=== PATIENT | female | born 1935 | race Caucasian/White ===

== ENCOUNTER 2019-03-01 10:09 | Emergency (ER) | payer MEDICARE, BC ==
[2019-03-01] MEDS ORDERED: MECLIZINE 12.5 MG TAB PO STA (10:41)
[2019-03-01] MEDS ORDERED: HYDROmorphone 1 MG/ML 1 ML SYRINGE IVP STA (10:43)
[2019-03-01] MEDS ORDERED: HYDROmorphone 0.5 MG/0.5 ML SYRINGE IVP STA (10:44)
--- NOTE | 2019-03-01 10:46 | ED ---
General Adult HPI - General Chief complaint: Fall Stated complaint: Fall- back pain Time Seen by Provider: 03/01/19 10:11 Source: patient, family, EMS, RN notes reviewed Mode of arrival: EMS Limitations: no limitations - History of Present Illness Initial comments: Patient is a pleasant 84-year-old female presenting to the emergency department following a fall with complaints of thoracic back pain. Patient does have chronic lower back pain. Patient states this is a little bit higher than her chronic pain. Patient states this morning she was in the kitchen and turned quickly and fell down. Patient states this was because she got dizzy. Patient does have chronic dizziness that has been present for years. Patient has seen her doctor for this however does not believe she's had a head CT. Patient is on blood thinners for atrial fibrillation history. Patient did lightly strike her head. No loss of consciousness. No confusion or weakness. No speech problems. No other area of injury except for her back. No chest pain or dyspnea. - Related Data Home Medications Medication Instructions Recorded Confirmed Calcium Carbonate [Calcium] 600 mg PO BID 08/10/15 03/01/19 Furosemide [Lasix] 20 mg PO DAILY@1600 08/10/15 03/01/19 Furosemide [Lasix] 40 mg PO QAM 08/10/15 03/01/19 Ny's Leg Cramps 1 tab PO DAILY PRN 08/10/15 03/01/19 Levothyroxine Sodium [Synthroid] 50 mcg PO DAILY 08/10/15 03/01/19 Losartan Potassium [Cozaar] 100 mg PO DAILY 08/10/15 03/01/19 Pravastatin Sodium [Pravachol] 40 mg PO DAILY 08/10/15 03/01/19 Acetaminophen [Tylenol Arthritis] 1,300 mg PO BID 03/01/19 03/01/19 Apixaban [Eliquis] 5 mg PO BID 03/01/19 03/01/19 Magnesium Oxide [Sullivan] 500 mg PO BID 03/01/19 03/01/19 Metoprolol Tartrate [Lopressor] 25 mg PO BID 03/01/19 03/01/19 Propylene Glycol/Peg 400/Pf 1 drop BOTH EYES Q4H PRN 03/01/19 03/01/19 [Systane 0.3-0.4% Eye Drops] Vit C/E/Zn/Coppr/Lutein/Zeaxan 1 cap PO BID 03/01/19 03/01/19 [Preservision Areds 2 Softgel] hydrALAZINE HCL [Apresoline] 50 mg PO BID 03/01/19 03/01/19 Previous Rx's Medication Instructions Recorded Meclizine [Antivert] 25 mg PO TID PRN #12 tab 03/01/19 traMADol HCl [Ultram] 50 mg PO Q6H PRN #12 tab 03/01/19 Allergies Allergy/AdvReac Type Severity Reaction Status Date / Time morphine Allergy Nausea & Verified 03/01/19 10:46 Vomiting Review of Systems ROS Statement: Those systems with pertinent positive or pertinent negative responses have been documented in the HPI. ROS Other: All systems not noted in ROS Statement are negative. Constitutional: Denies: fever Eyes: Denies: eye pain ENT: Denies: ear pain Respiratory: Denies: cough, dyspnea Cardiovascular: Denies: chest pain Endocrine: Denies: fatigue Gastrointestinal: Denies: abdominal pain Genitourinary: Denies: dysuria Musculoskeletal: Reports: as per HPI Skin: Denies: rash Neurological: Reports: vertigo. Denies: headache, weakness, confusion Past Medical History Past Medical History: Cancer, Hyperlipidemia, Osteoarthritis (OA), Thyroid Disorder Additional Past Medical History / Comment(s): See Dr Koo H&P, diet control diabetic, hx skin cancer History of Any Multi-Drug Resistant Organisms: None Reported Past Surgical History: Cholecystectomy, Hysterectomy, Tonsillectomy Additional Past Surgical History / Comment(s): removal of skin cancer Past Anesthesia/Blood Transfusion Reactions: Postoperative Nausea & Vomiting (PONV) Additional Past Anesthesia/Blood Transfusion Reaction / Comment(s): vomiting post up after given morphine Past Psychological History: No Psychological Hx Reported Smoking Status: Former smoker Past Alcohol Use History: None Reported Past Drug Use History: None Reported - Past Family History Mother Family Medical History: No Reported History General Exam Limitations: no limitations General appearance: alert, in no apparent distress Head exam: Present: atraumatic, normocephalic Eye exam: Present: normal appearance, PERRL, EOMI. Absent: nystagmus ENT exam: Present: normal oropharynx, TM's normal bilaterally Neck exam: Present: normal inspection. Absent: tenderness Respiratory exam: Present: normal lung sounds bilaterally Cardiovascular Exam: Present: regular rate, normal rhythm GI/Abdominal exam: Present: soft. Absent: tenderness Extremities exam: Present: normal inspection, full ROM. Absent: tenderness Back exam: Present: tenderness (T10-T11 region, midline) Neurological exam: Present: alert, oriented X3, CN II-XII intact. Absent: motor sensory deficit Expanded Neurological exam: Present: protecting the airway Speech: Present: fluid speech Cranial nerves: EOM's Intact: Normal Cerebellar function: Finger to Nose: Normal Motor strength exam: RUE: 5, LUE: 5, RLE: 5, LLE: 5 Eye Response: (4) open spontaneously Motor Response: (6) obeys commands Verbal Response: (5) oriented Psychiatric exam: Present: normal affect, normal mood Skin exam: Present: normal color Course Vital Signs 03/01/19 10:11 Temperature 98.1 F Pulse Rate 60 Respiratory 16 Rate Blood Pressure 171/73 O2 Sat by Pulse 97 Oximetry EKG Findings - EKG Comments: EKG Findings:: Paced rhythm at 62. QRS 180. QT 478. QTC 45. Left axis. D iffuse Q waves. No acute ST change. Medical Decision Making - Medical Decision Making Patient reevaluated and resting comfortably in bed. Discomfort is tolerable. Patient and family request discharge home. Case was discussed with [facility] covering for Dr. Sunshine is comfortable with discharge home and does request prescription for a TLSO brace which has been provided to the patient. They will follow up with patient. - Lab Data Result diagrams: 03/01/19 11:05 03/01/19 11:05 Lab Results 03/01/19 03/01/19 03/01/19 Range/Units 11:05 11:05 11:05 WBC 11.5 H (3.8-10.6) k/uL RBC 3.69 L (3.80-5.40) m/uL Hgb 11.2 L (11.4-16.0) gm/dL Hct 33.8 L (34.0-46.0) % MCV 91.5 (80.0-100.0) fL MCH 30.5 (25.0-35.0) pg MCHC 33.3 (31.0-37.0) g/dL RDW 14.7 (11.5-15.5) % Plt Count 285 (150-450) k/uL Neutrophils % 85 % Lymphocytes % 6 % Monocytes % 7 % Eosinophils % 1 % Basophils % 0 % Neutrophils # 9.8 H (1.3-7.7) k/uL Lymphocytes # 0.7 L (1.0-4.8) k/uL Monocytes # 0.8 (0-1.0) k/uL Eosinophils # 0.1 (0-0.7) k/uL Basophils # 0.0 (0-0.2) k/uL PT (9.0-12.0) sec INR (<1.2) APTT (22.0-30.0) sec Sodium 138 (137-145) mmol/L Potassium 5.2 H (3.5-5.1) mmol/L Chloride 103 (98-107) mmol/L Carbon Dioxide 28 (22-30) mmol/L Anion Gap 7 mmol/L BUN 36 H (7-17) mg/dL Creatinine 0.97 (0.52-1.04) mg/dL Est GFR (CKD-EPI)AfAm 63 (>60 ml/min/1.73 sqM) Est GFR (CKD-EPI)NonAf 54 (>60 ml/min/1.73 sqM) Glucose 99 (74-99) mg/dL Calcium 9.7 (8.4-10.2) mg/dL Total Bilirubin 0.5 (0.2-1.3) mg/dL AST 46 H (14-36) U/L ALT 36 (9-52) U/L Alkaline Phosphatase 55 (38-126) U/L Total Protein 6.8 (6.3-8.2) g/dL Albumin 4.1 (3.5-5.0) g/dL Urine Color Light Yellow Urine Appearance Clear (Clear) Urine pH 6.5 (5.0-8.0) Ur Specific [place] 1.008 (1.001-1.035) Urine Protein Negative (Negative) Urine Glucose (UA) Negative (Negative) Urine Ketones Negative (Negative) Urine Blood Negative (Negative) Urine Nitrite Negative (Negative) Urine Bilirubin Negative (Negative) Urine Urobilinogen <2.0 (<2.0) mg/dL Ur Leukocyte Esterase Negative (Negative) 03/01/19 Range/Units 12:00 WBC (3.8-10.6) k/uL RBC (3.80-5.40) m/uL Hgb (11.4-16.0) gm/dL Hct (34.0-46.0) % MCV (80.0-100.0) fL MCH (25.0-35.0) pg MCHC (31.0-37.0) g/dL RDW (11.5-15.5) % Plt Count (150-450) k/uL Neutrophils % % Lymphocytes % % Monocytes % % Eosinophils % % Basophils % % Neutrophils # (1.3-7.7) k/uL Lymphocytes # (1.0-4.8) k/uL Monocytes # (0-1.0) k/uL Eosinophils # (0-0.7) k/uL Basophils # (0-0.2) k/uL PT 10.7 (9.0-12.0) sec INR 1.0 (<1.2) APTT 26.1 (22.0-30.0) sec Sodium (137-145) mmol/L Potassium (3.5-5.1) mmol/L Chloride (98-107) mmol/L Carbon Dioxide (22-30) mmol/L Anion Gap mmol/L BUN (7-17) mg/dL Creatinine (0.52-1.04) mg/dL Est GFR (CKD-EPI)AfAm (>60 ml/min/1.73 sqM) Est GFR (CKD-EPI)NonAf (>60 ml/min/1.73 sqM) Glucose (74-99) mg/dL Calcium (8.4-10.2) mg/dL Total Bilirubin (0.2-1.3) mg/dL AST (14-36) U/L ALT (9-52) U/L Alkaline Phosphatase (38-126) U/L Total Protein (6.3-8.2) g/dL Albumin (3.5-5.0) g/dL Urine Color Urine Appearance (Clear) Urine pH (5.0-8.0) Ur Specific [place] (1.001-1.035) Urine Protein (Negative) Urine Glucose (UA) (Negative) Urine Ketones (Negative) Urine Blood (Negative) Urine Nitrite (Negative) Urine Bilirubin (Negative) Urine Urobilinogen (<2.0) mg/dL Ur Leukocyte Esterase (Negative) - Radiology Data Radiology results: report reviewed (Computed tomography scan of the brain reveals atrophy), image reviewed (Chest x-ray and thoracic library specialist for compression fracture T9 or T10.) Disposition Clinical Impression: Fracture, thoracic vertebra, compression Disposition: HOME SELF-CARE Condition: Stable Instructions (If sedation given, give patient instructions): Fall Prevention for Older Adults (ED), Vertigo (ED), Vertebral Compression Fracture (ED) Additional Instructions: Please follow-up with primary care physician this week. Please follow-up with Dr. Sunshine in the next couple of days for recheck, number provided. Return for weakness, worsening symptoms, dizziness, falling or any other concerns. Please hold Eliquis for the next 3 days. Prescriptions: Meclizine [Antivert] 25 mg PO TID PRN #12 tab PRN Reason: dizziness traMADol HCl [Ultram] 50 mg PO Q6H PRN #12 tab PRN Reason: Pain/Discomfort Is patient prescribed a controlled substance at d/c from ED?: Yes When asked, does pt state using other controlled substances?: No If prescribed controlled substance>3 days was MAPS reviewed?: Prescribed <3 Days If opioid is for acute pain is fill amount 7 days or less?: Yes If Rx opioid, was Start Talking consent form obtained?: Yes Referrals: Boone Contreras MD [Primary Care Provider] - 1-2 days Maryann Sunshine DO [Doctor of Osteopathic Medicine] - 1-2 days Time of Disposition: 13:22
--- NOTE | 2019-03-01 11:42 | CT ---
EXAMINATION TYPE: CT brain wo con DATE OF EXAM: 03/01/2019 HISTORY: Fall with blow to back of head head headache. CT DLP: 1131.4 mGycm. Automated Exposure Control for Dose Reduction was Utilized. TECHNIQUE: CT scan of the head is performed without contrast. COMPARISON: None. FINDINGS: There is no acute intracranial hemorrhage or midline shift identified. There is diffuse v entricular and sulcal prominence consistent with diffuse age-related cerebral atrophy. There is low- attenuation in the periventricular white matter consistent with chronic small vessel ischemic change. The globes are intact and the visualized sinuses are clear. The calvarium is intact. Vascular howard cification distal internal carotid arteries bilaterally is present. IMPRESSION: No acute intracranial hemorrhage or midline shift. There is moderate diffuse age-relate d cerebral atrophy and chronic small vessel ischemic change noted.
--- NOTE | 2019-03-01 11:42 | XR ---
Thoracic spine HISTORY: Trauma and pain 3 views of the thoracic spine There is a scoliosis present. Bone mineralization is reduced. Mild loss of height at the superior end plate is present approximately 25% centrally at lower thoracic vertebral body, likely T9, no evident retropulsion. Probable hiatal hernia noted. Pacemaker is present with leads in the right atrium and v entricle. Degenerative disc changes are present in the lumbar spine. IMPRESSION: Osteoporotic compression fracture as described lower thoracic spine.
--- NOTE | 2019-03-01 11:45 | XR ---
EXAMINATION TYPE: XR chest 2V DATE OF EXAM: 03/01/2019 COMPARISON: Chest x-ray August 12, 2015 HISTORY: Fall injury this morning with chest and back pain. TECHNIQUE: Frontal and lateral views of the chest are obtained. FINDINGS: There is chronic parenchymal change without suspicious focal air space opacity, pleural ef fusion, or pneumothorax seen. The cardiac silhouette size is redemonstrated enlarged with dual lead pacemaker. Underlying dextroconvex scoliosis centered in the upper thoracic spine is redemonstrated. There is levoconvex scoliosis centered near thoracolumbar junction redemonstrated. Osseous structures are demineralized. Age-indeterminate mild compression fracture roughly T10 level is favored chronic new from 2015 study. IMPRESSION: Chronic changes and cardiomegaly without acute pulmonary process. Mild compression fract ure T10 levels favored old.
[2019-03-01 11:46] LABS: Appearance,Urine Clear (Clear); Basophils % (A) 0 %; Bilirubin,Urine Negative (Negative); Blood,Urine Negative (Negative); Color,Urine Light Yellow; Eosinophils # (A) 0.1 k/uL (0-0.7); Eosinophils % (A) 1 %; Glucose,Urine (UA) Negative (Negative); HCT 33.8 % (34.0-46.0); HGB 11.2 gm/dL (11.4-16.0); Ketones,Urine Negative (Negative); Leukocyte Esterase,Urine Negative (Negative); Lymphocytes # (A) 0.7 k/uL (1.0-4.8); Lymphocytes % (A) 6 %; MCH 30.5 pg (25.0-35.0); MCHC 33.3 g/dL (31.0-37.0); MCV 91.5 fL (80.0-100.0); Mean Platelet Volume 7.7; Monocytes # (A) 0.8 k/uL (0-1.0); Monocytes % (A) 7 %; Neutrophils # (A) 9.8 k/uL (1.3-7.7); Neutrophils % (A) 85 %; Nitrite,Urine Negative (Negative); PH, Urine 6.5 (5.0-8.0); Platelet Count 285 k/uL (150-450); Protein,Urine Negative (Negative); RBC 3.69 m/uL (3.80-5.40); RDW 14.7 % (11.5-15.5); Specific Gravity,Urine 1.008 (1.001-1.035); Urobilinogen,Urine <2.0 mg/dL (<2.0); WBC 11.5 k/uL (3.8-10.6)
[2019-03-01 11:49] LABS: Albumin 4.1 g/dL (3.5-5.0); Calcium 9.7 mg/dL (8.4-10.2); Potassium 5.2 mmol/L (3.5-5.1); Total Bilirubin 0.5 mg/dL (0.2-1.3); Total Protein 6.8 g/dL (6.3-8.2)
[2019-03-01 12:46] LABS: Prothrombin Time 10.7 sec (9.0-12.0)
[2019-03-01 12:47] LABS: Partial Thromboplastin Time 26.1 sec (22.0-30.0)
[2019-03-01] MEDS ORDERED: traMADol 50 MG TAB PO STA (13:45)
[2019-03-01 14:10] VITALS: BP 173/70; PULSE 77; RESP 18; TEMP 98.5
== END 2019-03-01 13:35 | disposition home or self-care (01) ==
LOC: EC 10:09
DX: S22.079A Unspecified fracture of T9-T10 vertebra, initial encounter for closed fracture (principal); E78.5 Hyperlipidemia, unspecified; E07.9 Disorder of thyroid, unspecified; E11.9 Type 2 diabetes mellitus without complications; I48.91 Unspecified atrial fibrillation; Z79.890 Hormone replacement therapy; Z79.01 Long term (current) use of anticoagulants; Z79.899 Other long term (current) drug therapy; Z88.5 Allergy status to narcotic agent; Z85.828 Personal history of other malignant neoplasm of skin; Z95.0 Presence of cardiac pacemaker; Z87.891 Personal history of nicotine dependence; W19.XXXA Unspecified fall, initial encounter; Y92.000 Kitchen of unspecified non-institutional (private) residence as the place of occurrence of the external cause
CPT/HCPCS: 36415; 93005; 80053; 85025; 85610; 85730; 81003; 72072; 71046; 70450; 99284; 96374; J1170

== ENCOUNTER 2019-03-05 12:13 | Emergency (ER) | payer MEDICARE, BC ==
[2019-03-05 12:27] VITALS: RESP 18
[2019-03-05] MEDS ORDERED: ACETAMINOPHEN TAB 500 MG TAB PO STA (12:39)
--- NOTE | 2019-03-05 12:45 | ED ---
General Adult HPI - General Chief complaint: Neck Pain/Injury Stated complaint: Neck pain Time Seen by Provider: 03/05/19 12:20 Source: patient, family, RN notes reviewed Mode of arrival: ambulatory Limitations: no limitations - History of Present Illness Initial comments: This is an 84-year-old female presents emergency department after having had a fall on Friday. Patient states she was evaluated emergency department the CAT scan her head and did some x-rays and they found nothing abnormal. Patient states Friday she started having left shoulder pain and neck pain. Patient states she thought it was from the fall and she thought it would go away. Patient states the pain still persists in this morning she also had a fever so she decided come the emergency department to be evaluated. Patient denies any headache. Patient denies any numbness or weakness. Patient denies any chest pain difficulty breathing shortness of breath. Patient denies any cough. Patient denies any abdominal pain. Patient any nausea vomiting. Patient denied dysuria hematuria urinary frequency. Patient denied any back pain. Patient denied any extremity pain except for the left shoulder pain. - Related Data Home Medications Medication Instructions Recorded Confirmed Calcium Carbonate [Calcium] 600 mg PO BID 08/10/15 03/05/19 Furosemide [Lasix] 20 mg PO DAILY@1600 08/10/15 03/05/19 Furosemide [Lasix] 40 mg PO QAM 08/10/15 03/05/19 Ny's Leg Cramps 1 tab PO DAILY PRN 08/10/15 03/05/19 Levothyroxine Sodium [Synthroid] 50 mcg PO DAILY 08/10/15 03/05/19 Losartan Potassium [Cozaar] 100 mg PO DAILY 08/10/15 03/05/19 Pravastatin Sodium [Pravachol] 40 mg PO DAILY 08/10/15 03/05/19 Acetaminophen [Tylenol Arthritis] 1,300 mg PO BID 03/01/19 03/05/19 Apixaban [Eliquis] 5 mg PO BID 03/01/19 03/05/19 Magnesium Oxide [Sullivan] 500 mg PO BID 03/01/19 03/05/19 Metoprolol Tartrate [Lopressor] 25 mg PO BID 03/01/19 03/05/19 Propylene Glycol/Peg 400/Pf 1 drop BOTH EYES Q4H PRN 03/01/19 03/05/19 [Systane 0.3-0.4% Eye Drops] Vit C/E/Zn/Coppr/Lutein/Zeaxan 1 cap PO BID 03/01/19 03/05/19 [Preservision Areds 2 Softgel] hydrALAZINE HCL [Apresoline] 50 mg PO BID 03/01/19 03/05/19 Previous Rx's Medication Instructions Recorded Meclizine [Antivert] 25 mg PO TID PRN #12 tab 03/01/19 traMADol HCl [Ultram] 50 mg PO Q6H PRN #12 tab 03/01/19 Sulfamethox-Tmp 800-160Mg [Bactrim 1 each PO Q12HR #14 tab 03/05/19 DS 800-160 mg] Allergies Allergy/AdvReac Type Severity Reaction Status Date / Time morphine AdvReac Nausea & Verified 03/05/19 12:29 Vomiting Review of Systems ROS Statement: Those systems with pertinent positive or pertinent negative responses have been documented in the HPI. ROS Other: All systems not noted in ROS Statement are negative. Past Medical History Past Medical History: Cancer, Hyperlipidemia, Osteoarthritis (OA), Thyroid Disorder Additional Past Medical History / Comment(s): See Dr Koo H&P, diet control diabetic, hx skin cancer History of Any Multi-Drug Resistant Organisms: None Reported Past Surgical History: Cholecystectomy, Hysterectomy, Tonsillectomy Additional Past Surgical History / Comment(s): removal of skin cancer Past Anesthesia/Blood Transfusion Reactions: Postoperative Nausea & Vomiting (PONV) Additional Past Anesthesia/Blood Transfusion Reaction / Comment(s): vomiting post up after given morphine Past Psychological History: No Psychological Hx Reported Smoking Status: Former smoker Past Alcohol Use History: None Reported Past Drug Use History: None Reported - Past Family History Mother Family Medical History: No Reported History General Exam - General Exam Comments Initial Comments: GENERAL: Patient is well-developed and well-nourished. Patient is nontoxic and well- hydrated and is in mild distress. ENT: Neck is soft and supple. No significant lymphadenopathy is noted. Oropharynx is clear. Moist mucous membranes. Neck has full range of motion without litzy citing any pain. EYES: The sclera were anicteric and conjunctiva were pink and moist. Extraocular movements were intact and pupils were equal round and reactive to light. Eyelids were unremarkable. PULMONARY: Unlabored respirations. Good breath sounds bilaterally. No audible rales rhonchi or wheezing was noted. CARDIOVASCULAR: There is a regular rate and rhythm without any murmurs gallops or rubs. ABDOMEN: Soft and nontender with normal bowel sounds. No palpable organomegaly was note d. There is no palpable pulsatile mass. SKIN: Skin is clear with no lesions or rashes and otherwise unremarkable. NEUROLOGIC: Patient is alert and oriented x3. Cranial nerves II through XII are grossly intact. Motor and sensory are also intact. Normal speech, volume and content. Symmetrical smile. MUSCULOSKELETAL: Normal extremities with adequate strength and full range of motion. Patient has some tenderness to the lateral aspect of the left shoulder. Patient also has some left-sided trapezius muscle pain. LYMPHATICS: No significant lymphadenopathy is noted PSYCHIATRIC: Normal psychiatric evaluation. Limitations: no limitations Course Vital Signs 03/05/19 03/05/19 03/05/19 12:18 12:28 13:59 Temperature 101.5 F H 99.5 F Pulse Rate 70 65 68 Respiratory 18 18 18 Rate Blood Pressure 135/59 123/55 103/55 O2 Sat by Pulse 93 L 97 96 Oximetry Medical Decision Making - Medical Decision Making EKG shows sinus rhythm at 62 bpm QRS is 162 QTC intervals 426 QTC is 432. I compared this EKG to an old EKG done earlier in the week there is no acute changes noted. CT of the C-spine showed no acute abnormality. X-ray of the left shoulder showed no acute abnormality. Patient's urine had a few white cells and I called to the area I also gave the patient a dose of Rocephin in the hospital. - Lab Data Result diagrams: 03/05/19 12:35 03/05/19 12:35 Lab Results 03/05/19 03/05/19 03/05/19 Range/Units 12:30 12:35 12:35 WBC 9.8 (3.8-10.6) k/uL RBC 3.47 L (3.80-5.40) m/uL Hgb 10.3 L (11.4-16.0) gm/dL Hct 30.8 L (34.0-46.0) % MCV 88.5 (80.0-100.0) fL MCH 29.7 (25.0-35.0) pg MCHC 33.6 (31.0-37.0) g/dL RDW 15.2 (11.5-15.5) % Plt Count 259 (150-450) k/uL Neutrophils % 74 % Lymphocytes % 9 % Monocytes % 12 % Eosinophils % 1 % Basophils % 0 % Neutrophils # 7.3 (1.3-7.7) k/uL Lymphocytes # 0.9 L (1.0-4.8) k/uL Monocytes # 1.2 H (0-1.0) k/uL Eosinophils # 0.1 (0-0.7) k/uL Basophils # 0.0 (0-0.2) k/uL PT (9.0-12.0) sec INR (<1.2) APTT (22.0-30.0) sec Sodium 129 L (137-145) mmol/L Potassium 5.1 (3.5-5.1) mmol/L Chloride 90 L (98-107) mmol/L Carbon Dioxide 30 (22-30) mmol/L Anion Gap 9 mmol/L BUN 49 H (7-17) mg/dL Creatinine 1.36 H (0.52-1.04) mg/dL Est GFR (CKD-EPI)AfAm 42 (>60 ml/min/1.73 sqM) Est GFR (CKD-EPI)NonAf 36 (>60 ml/min/1.73 sqM) Glucose 120 H (74-99) mg/dL Plasma Lactic Acid [place] (0.7-2.0) mmol/L Calcium 9.0 (8.4-10.2) mg/dL Total Bilirubin 0.6 (0.2-1.3) mg/dL AST 43 H (14-36) U/L ALT 38 (9-52) U/L Alkaline Phosphatase 104 (38-126) U/L Total Protein 6.1 L (6.3-8.2) g/dL Albumin 3.4 L (3.5-5.0) g/dL Urine Color Urine Appearance (Clear) Urine pH (5.0-8.0) Ur Specific [place] (1.001-1.035) Urine Protein (Negative) Urine Glucose (UA) (Negative) Urine Ketones (Negative) Urine Blood (Negative) Urine Nitrite (Negative) Urine Bilirubin (Negative) Urine Urobilinogen (<2.0) mg/dL Ur Leukocyte Esterase (Negative) Urine RBC (0-5) /hpf Urine WBC (0-5) /hpf Ur Squamous Epith Cells (0-4) /hpf Hyaline Casts (0-2) /lpf Urine Mucus (None) /hpf Influenza Type A RNA Not Detected (Not Detectd) Influenza Type B (PCR) Not Detected (Not Detectd) 03/05/19 03/05/19 03/05/19 Range/Units 12:35 12:35 13:50 WBC (3.8-10.6) k/uL RBC (3.80-5.40) m/uL Hgb (11.4-16.0) gm/dL Hct (34.0-46.0) % MCV (80.0-100.0) fL MCH (25.0-35.0) pg MCHC (31.0-37.0) g/dL RDW (11.5-15.5) % Plt Count (150-450) k/uL Neutrophils % % Lymphocytes % % Monocytes % % Eosinophils % % Basophils % % Neutrophils # (1.3-7.7) k/uL Lymphocytes # (1.0-4.8) k/uL Monocytes # (0-1.0) k/uL Eosinophils # (0-0.7) k/uL Basophils # (0-0.2) k/uL PT 10.4 (9.0-12.0) sec INR 1.0 (<1.2) APTT 26.9 (22.0-30.0) sec Sodium (137-145) mmol/L Potassium (3.5-5.1) mmol/L Chloride (98-107) mmol/L Carbon Dioxide (22-30) mmol/L Anion Gap mmol/L BUN (7-17) mg/dL Creatinine (0.52-1.04) mg/dL Est GFR (CKD-EPI)AfAm (>60 ml/min/1.73 sqM) Est GFR (CKD-EPI)NonAf (>60 ml/min/1.73 sqM) Glucose (74-99) mg/dL Plasma Lactic Acid [place] 1.4 (0.7-2.0) mmol/L Calcium (8.4-10.2) mg/dL Total Bilirubin (0.2-1.3) mg/dL AST (14-36) U/L ALT (9-52) U/L Alkaline Phosphatase (38-126) U/L Total Protein (6.3-8.2) g/dL Albumin (3.5-5.0) g/dL Urine Color Yellow Urine Appearance Clear (Clear) Urine pH 6.5 (5.0-8.0) Ur Specific [place] 1.010 (1.001-1.035) Urine Protein Negative (Negative) Urine Glucose (UA) Negative (Negative) Urine Ketones Negative (Negative) Urine Blood Negative (Negative) Urine Nitrite Negative (Negative) Urine Bilirubin Negative (Negative) Urine Urobilinogen <2.0 (<2.0) mg/dL Ur Leukocyte Esterase Large H (Negative) Urine RBC 2 (0-5) /hpf Urine WBC 20 H (0-5) /hpf Ur Squamous Epith Cells 1 (0-4) /hpf Hyaline Casts 3 H (0-2) /lpf Urine Mucus Rare H (None) /hpf Influenza Type A RNA (Not Detectd) Influenza Type B (PCR) (Not Detectd) Disposition Clinical Impression: Strain of neck muscle, Shoulder contusion, UTI (urinary tract infection) Disposition: HOME SELF-CARE Condition: Good Instructions (If sedation given, give patient instructions): Cervical Strain (ED), Urinary Tract Infection in Women (ED) Prescriptions: Sulfamethox-Tmp 800-160Mg [Bactrim DS 800-160 mg] 1 each PO Q12HR #14 tab Is patient prescribed a controlled substance at d/c from ED?: No Referrals: Boone Contreras MD [Primary Care Provider] - 1-2 days
[2019-03-05 13:03] LABS: Basophils % (A) 0 %; Eosinophils # (A) 0.1 k/uL (0-0.7); Eosinophils % (A) 1 %; HCT 30.8 % (34.0-46.0); HGB 10.3 gm/dL (11.4-16.0); Lymphocytes # (A) 0.9 k/uL (1.0-4.8); Lymphocytes % (A) 9 %; MCH 29.7 pg (25.0-35.0); MCHC 33.6 g/dL (31.0-37.0); MCV 88.5 fL (80.0-100.0); Mean Platelet Volume 9.1; Monocytes # (A) 1.2 k/uL (0-1.0); Monocytes % (A) 12 %; Neutrophils # (A) 7.3 k/uL (1.3-7.7); Neutrophils % (A) 74 %; Platelet Count 259 k/uL (150-450); RBC 3.47 m/uL (3.80-5.40); RDW 15.2 % (11.5-15.5); WBC 9.8 k/uL (3.8-10.6)
[2019-03-05 13:12] LABS: Albumin 3.4 g/dL (3.5-5.0); Potassium 5.1 mmol/L (3.5-5.1); Total Bilirubin 0.6 mg/dL (0.2-1.3); Total Protein 6.1 g/dL (6.3-8.2)
[2019-03-05 13:19] LABS: Partial Thromboplastin Time 26.9 sec (22.0-30.0); Prothrombin Time 10.4 sec (9.0-12.0)
--- NOTE | 2019-03-05 13:21 | XR ---
EXAMINATION TYPE: XR shoulder complete LT DATE OF EXAM: 03/05/2019 COMPARISON: NONE HISTORY: Pain TECHNIQUE: Three views are submitted. FINDINGS: The osseous structures are intact. There is no acute fracture or dislocation. The AC joint is maint ained. Cardiac device noted. Diffuse osteopenia noted. Arthropathy of the AC joint. IMPRESSION: 1. Diffuse osteopenia and arthropathy with no definite acute fracture.
--- NOTE | 2019-03-05 13:47 | CT ---
EXAMINATION TYPE: CT cervical spine wo con DATE OF EXAM: 03/05/2019 COMPARISON: None HISTORY: neck pain post fall [address] DLP: 338.5 mGycm CONTRAST: None CT of the cervical spine is performed in the axial plane at 2 mm thick sections. Reconstructed image s in the coronal, and sagittal plane are reviewed on the computer. No acute fractures are evident. There is multilevel spondylolisthesis very minimal spondylolisthesis of C5 anterior on C6, grade 1 sp ondylolisthesis of C6 anteriorly on C7 and C7 anterior and T1. Mild diffuse disc space narrowing is present C5-6 C6-7 and milder disc space narrowing is present at the remaining disc levels. Vertebral body heights are preserved. No spinal canal stenosis is evident No neural foraminal stenosis is evident. IMPRESSIONS: 1. Spondylolisthesis of the lower cervical spine discussed above. 2. No acute abnormality identified.
[2019-03-05 14:02] VITALS: TEMP 99.5
[2019-03-05 14:08] LABS: Appearance,Urine Clear (Clear); Bilirubin,Urine Negative (Negative); Blood,Urine Negative (Negative); Color,Urine Yellow; Glucose,Urine (UA) Negative (Negative); Hyaline Casts,Urine 3 /lpf (0-2); Ketones,Urine Negative (Negative); Leukocyte Esterase,Urine Large (Negative); Mucus,Urine Rare /hpf; Nitrite,Urine Negative (Negative); PH, Urine 6.5 (5.0-8.0); Protein,Urine Negative (Negative); RBC,Urine 2 /hpf (0-5); Squamous Epithelial Cell,Urine 1 /hpf (0-4); Urobilinogen,Urine <2.0 mg/dL (<2.0); WBC,Urine 20 /hpf (0-5)
[2019-03-05] MEDS ORDERED: cefTRIAXone IN SWFI 1,000 MG/10 ML SYRINGE IVP STA (14:20)
[2019-03-05 15:16] VITALS: BP 112/56; PULSE 60
== END 2019-03-05 15:00 | disposition home or self-care (01) ==
LOC: EC 12:13
DX: S16.1XXA Strain of muscle, fascia and tendon at neck level, initial encounter (principal); S40.012A Contusion of left shoulder, initial encounter; N39.0 Urinary tract infection, site not specified; E78.5 Hyperlipidemia, unspecified; M19.90 Unspecified osteoarthritis, unspecified site; E11.9 Type 2 diabetes mellitus without complications; E07.9 Disorder of thyroid, unspecified; Z87.891 Personal history of nicotine dependence; Z88.5 Allergy status to narcotic agent; Z79.01 Long term (current) use of anticoagulants; Z79.890 Hormone replacement therapy; Z79.891 Long term (current) use of opiate analgesic; Z79.899 Other long term (current) drug therapy; Z85.828 Personal history of other malignant neoplasm of skin; Z98.890 Other specified postprocedural states; W19.XXXA Unspecified fall, initial encounter
CPT/HCPCS: 36415; 72125; 80053; 81001; 83605; 85025; 85610; 85730; 87040; 87086; 87502; 93005; 99284

== ENCOUNTER → 2019-03-25 | Outpatient (CLI) | payer MEDICARE, BC ==
[2019-03-25 16:00] LABS: Anion Gap 9.4 mmol/L (4.00-12.00); Calcium 9.1 mg/dL (8.7-10.3); Carbon Dioxide 27.6 mmol/L (21.6-31.8); Potassium 4.6 mmol/L (3.5-5.5)
[2019-03-25 16:08] LABS: T4, Free (Free Thyroxine) 1.3 ng/dL (0.80-1.80)
== END | disposition home or self-care (01) ==
LOC: LABWHC1 10:35
PROVIDERS: ATTEND Nurse Practitioner Adult Health
DX: I48.0 Paroxysmal atrial fibrillation (principal); I10 Essential (primary) hypertension
CPT/HCPCS: 36415; 80048; 84439; 84443

== ENCOUNTER 2019-07-16 13:43 | Emergency (ER) | payer MEDICARE, BC ==
[~2019-07-16 13:43] MED LIST: CHLORHEXIDINE GLUCONATE 15 ML CUP MUCOUS MEM ONE
[2019-07-16] MEDS ORDERED: SODIUM BICARB 8.4% 50 ML SYR (1 MEQ/ML) ONE (13:49)
[2019-07-16] MEDS ORDERED: EPINEPHrine 10 ML SYRINGE (0.1 MG/ML) ONE (13:49)
--- NOTE | 2019-07-16 14:30 | ED ---
CPR HPI - General Stated Complaint: Cardiac arrest Time Seen by Provider: 07/16/19 14:07 Source: family, EMS, RN notes reviewed, old records reviewed Mode of arrival: EMS Limitations: altered mental status, physical limitation - History of Present Illness Initial Comments: This is a 4-year-old female the ER for evaluation. Patient has a complicated medical history is brought in by EMS for cardiac arrest. Patient was pulseless in the field the tach, V. fib. Patient was given 2 shots, patient's brought to ER by EMS continued CPR. Per family patient was maybe a long for about 15 minutes when he found her down. Patient remains unresponsive, pulseless MD Complaint: found unresponsive, stopped breathing, collapsed during activity -: minute(s) (15) Place: home Bystander CPR Performed: Yes AED Applied by Bystander/Plant Maintenance Supervisor: Yes Shock Advised: Yes Number of Shocks Delivered: 2 Downtime Before ACLS Arrival (mins): 20 Initial Findings in the Field: unresponsive, agonal, no pulse, VTACH/VFIB ROSC in the Field: No Associated Injuries: No Treatments Prior to Arrival: other airway device, defibrillated shocks #, epinephrine mgs # - Related Data Home Medications Medication Instructions Recorded Confirmed Calcium Carbonate [Calcium] 600 mg PO BID 08/10/15 03/05/19 Furosemide [Lasix] 20 mg PO DAILY@1600 08/10/15 03/05/19 Furosemide [Lasix] 40 mg PO QAM 08/10/15 03/05/19 Ny's Leg Cramps 1 tab PO DAILY PRN 08/10/15 03/05/19 Levothyroxine Sodium [Synthroid] 50 mcg PO DAILY 08/10/15 03/05/19 Losartan Potassium [Cozaar] 100 mg PO DAILY 08/10/15 03/05/19 Pravastatin Sodium [Pravachol] 40 mg PO DAILY 08/10/15 03/05/19 Acetaminophen [Tylenol Arthritis] 1,300 mg PO BID 03/01/19 03/05/19 Apixaban [Eliquis] 5 mg PO BID 03/01/19 03/05/19 Magnesium Oxide [Sullivan] 500 mg PO BID 03/01/19 03/05/19 Metoprolol Tartrate [Lopressor] 25 mg PO BID 03/01/19 03/05/19 Propylene Glycol/Peg 400/Pf 1 drop BOTH EYES Q4H PRN 03/01/19 03/05/19 [Systane 0.3-0.4% Eye Drops] Vit C/E/Zn/Coppr/Lutein/Zeaxan 1 cap PO BID 03/01/19 03/05/19 [Preservision Areds 2 Softgel] hydrALAZINE HCL [Apresoline] 50 mg PO BID 03/01/19 03/05/19 Previous Rx's Medication Instructions Recorded Meclizine [Antivert] 25 mg PO TID PRN #12 tab 03/01/19 traMADol HCl [Ultram] 50 mg PO Q6H PRN #12 tab 03/01/19 Sulfamethox-Tmp 800-160Mg [Bactrim 1 each PO Q12HR #14 tab 03/05/19 DS 800-160 mg] Allergies Allergy/AdvReac Type Severity Reaction Status Date / Time morphine AdvReac Nausea & Verified 07/16/19 14:41 Vomiting Review of Systems ROS Statement: Those systems with pertinent positive or pertinent negative responses have been documented in the HPI. ROS Other: All systems not noted in ROS Statement are negative. Past Medical History Past Medical History: Cancer, Hyperlipidemia, Osteoarthritis (OA), Thyroid Disorder Additional Past Medical History / Comment(s): See Dr Koo H&P, diet control diabetic, hx skin cancer History of Any Multi-Drug Resistant Organisms: None Reported Past Surgical History: Cholecystectomy, Hysterectomy, Tonsillectomy Additional Past Surgical History / Comment(s): removal of skin cancer Past Anesthesia/Blood Transfusion Reactions: Postoperative Nausea & Vomiting (PONV) Additional Past Anesthesia/Blood Transfusion Reaction / Comment(s): vomiting post up after given morphine Past Psychological History: No Psychological Hx Reported Smoking Status: Former smoker Past Alcohol Use History: None Reported Past Drug Use History: None Reported - Past Family History Mother Family Medical History: No Reported History General Exam General appearance: obtunded, in distress Head exam: Present: atraumatic, normocephalic, normal inspection Eye exam: Present: normal appearance, other (pupils fixed and dilated). Absent: scleral icterus, conjunctival injection, periorbital swelling ENT exam: Present: normal exam, mucous membranes moist Neck exam: Present: normal inspection. Absent: tenderness, meningismus, lymphadenopathy Respiratory exam: Absent: normal lung sounds bilaterally (no breath sounds), respiratory distress, wheezes, rales, rhonchi, stridor Cardiovascular Exam: Absent: normal heart sounds, systolic murmur, diastolic murmur, rubs, gallop, clicks GI/Abdominal exam: Present: soft. Absent: distended, tenderness, guarding, rebound, rigid Extremities exam: Present: normal inspection, full ROM, normal capillary refill. Absent: tenderness, pedal edema, joint swelling, calf tenderness Neurological exam: Present: other (unresponsive) Psychiatric exam: Present: normal affect, normal mood Skin exam: Present: warm, dry, intact, cyanosis, pallor. Absent: rash Course Vital Signs 07/16/19 14:20 Pulse Rate 0 L Respiratory 0 L Rate Blood Pressure 0/0 O2 Sat by Pulse 99 Oximetry - Reevaluation(s) Reevaluation #1: 07/16/19 14:26 mrdical record is reviewed Reevaluation #2: 07/16/19 14:26 family at bedside state that she would not want CPR, or to be a Code ACLS terminated Reevaluation #3: 07/16/19 14:26 patient and family informed, questions answered 07/16/19 14:27 patient is assessed, asystole (pacer-now stopped) , US bedside shows cardiac standstill, no BS bilaterally, pupils fixed and dilated, no heart sounds 07/16/19 14:04 - Reevaluation #4: 07/16/19 14:46 Spoke with medical historian, spoke with Dr. Tabares who will sign certificate Medical Decision Making - Medical Decision Making 84 female to the ED s/p CPA,CPR per EMS, discontinued here in ED at reuest of family. Patient , pronounced at 14:04 Disposition Clinical Impression: Cardiopulmonary arrest Disposition: Condition: Critical Is patient prescribed a controlled substance at d/c from ED?: No Referrals: Boone Contreras MD [Primary Care Provider] - 1-2 days Preliminary Cause of : CPA
[2019-07-16 14:41] VITALS: BP 0/0; PULSE 0; RESP 0
== END 2019-07-16 16:05 | disposition expired ==
LOC: EC 13:43
DX: I46.9 Cardiac arrest, cause unspecified (principal); E78.5 Hyperlipidemia, unspecified; E11.9 Type 2 diabetes mellitus without complications; E07.9 Disorder of thyroid, unspecified; M19.90 Unspecified osteoarthritis, unspecified site; Z87.891 Personal history of nicotine dependence; Z88.5 Allergy status to narcotic agent; Z79.01 Long term (current) use of anticoagulants; Z79.890 Hormone replacement therapy; Z79.891 Long term (current) use of opiate analgesic; Z79.899 Other long term (current) drug therapy; Z85.828 Personal history of other malignant neoplasm of skin; Z98.890 Other specified postprocedural states
CPT/HCPCS: 99285; J0171